=== PATIENT | female | born 2000 | race Caucasian/White ===

== ENCOUNTER 2018-04-28 22:51 | Emergency (ER) | payer OTHER ==
--- NOTE | 2018-04-29 01:17 | ER Document Report ---
ED General - General Chief Complaint: Possible UTI, hematuria Stated Complaint: SEVERE BLADDER PAIN,HEMATURIA Time Seen by Provider: 04/29/18 01:15 Notes: Patient presents for concern of urinary infection. Patient states she has been having bilateral flank pain for last several days and now has been having urinary frequency but not feeling like she is able to completely void. She denies any recent fevers or chills has been having some mild nausea. She also complains of pelvic pain in the absence of any vaginal discharge or bleeding or concern for vaginal infection. No known medical problems does not take any medications on a daily basis. TRAVEL OUTSIDE OF THE [place] IN LAST 30 DAYS: No - Related Data Allergies/Adverse Reactions: No Known Allergies Allergy (Unverified 04/29/18 02:07) Past Medical History - Social History Smoking Status: Unknown if Ever Smoked Family History: Reviewed & Not Pertinent Review of Systems - Review of Systems Constitutional: No symptoms reported EENT: No symptoms reported Cardiovascular: No symptoms reported Respiratory: No symptoms reported Gastrointestinal: No symptoms reported Genitourinary: See HPI Female Genitourinary: No symptoms reported Musculoskeletal: No symptoms reported Skin: No symptoms reported Hematologic/Lymphatic: No symptoms reported Neurological/Psychological: No symptoms reported Physical Exam - Vital signs Vitals: Temp Pulse Resp BP Pulse Ox 98.7 F 114 H 18 135/68 H 98 04/28/18 23:09 04/28/18 23:09 04/28/18 23:09 04/28/18 23:09 04/28/18 23:09 - General General appearance: Appears well, Alert - HEENT Head: Normocephalic, Atraumatic - Respiratory Respiratory status: No respiratory distress Chest status: Nontender Breath sounds: Normal Chest palpation: Normal - Cardiovascular Rhythm: Regular Heart sounds: Normal auscultation Murmur: No - Abdominal Inspection: Normal Distension: No distension Bowel sounds: Normal Tenderness: Nontender - Back Back: Normal. No: CVA tenderness - Neurological Orientation: AAOx4 Course - Vital Signs Vital signs: Temp Pulse Resp BP Pulse Ox 98.7 F 114 H 18 135/68 H 98 04/28/18 23:09 04/28/18 23:09 04/28/18 23:09 04/28/18 23:09 04/28/18 23:09 - Laboratory Laboratory results interpreted by me: 04/29/18 01:20 Urine Protein 100 H Urine Glucose (UA) 50 H Urine Blood MODERATE H Urine Nitrite POSITIVE H Urine Urobilinogen 4.0 H Ur Leukocyte Esterase TRACE H Discharge - Discharge Clinical Impression: UTI (urinary tract infection) Qualifiers: Urinary tract infection type: site unspecified Hematuria presence: with hematuria Qualified Code(s): N39.0 - Urinary tract infection, site not specified Condition: Good Disposition: HOME, SELF-CARE Instructions: Urinary Tract Infection ([facility]) Additional Instructions: Please follow-up in the next 2-3 days if you begin to experience any worsening symptoms including any fevers or chills Prescriptions: Cephalexin Monohydrate [Keflex 500 mg Capsule] 500 mg PO Q6H 5 Days #20 capsule
[2018-04-29 01:51] LABS: APPEARANCE,URINE SLIGHTLY-CLOUDY; BILIRUBIN,URINE NEGATIVE (NEGATIVE); COLOR,URINE AMBER; GLUCOSE, URINE 50 mg/dL (NEGATIVE); KETONES,URINE NEGATIVE (NEGATIVE); LEUKOCYTE ESTERASE,URINE TRACE (NEGATIVE); NITRITE,URINE POSITIVE (NEGATIVE); PROTEIN,URINE 100 mg/dL (NEGATIVE); URINE SPECIFIC GRAVITY 1.029
[2018-04-29 02:03] VITALS: BP 135/68
== END 2018-04-29 02:08 | disposition home or self-care (01) ==
LOC: ER 22:51
DX: N39.0 Urinary tract infection, site not specified (principal); R10.9 Unspecified abdominal pain; R35.0 Frequency of micturition; R11.0 Nausea; R10.2 Pelvic and perineal pain
CPT/HCPCS: 81001; 81025; 87086; 87088; 87186; 99283